=== PATIENT | female | born 1995 | race African-American/Black ===

== ENCOUNTER 2018-09-13 08:21 | Emergency (ER) | payer MEDICAID, OTHER ==
[~2018-09-13] VITALS: Ht 193 cm; Wt 95.0 kg
[2018-09-13] MEDS ORDERED: IBUPROFEN 600 MG TABLET PO ONE (09:00)
[2018-09-13] MEDS ORDERED: HYDROCODONE/ACETAMINOPHEN 5-325 MG TABLET PO ONE (09:00)
[2018-09-13 09:23] VITALS: BP 132/84
[2018-09-13] MEDS ORDERED: BACITRACIN 0.9 GM PACKET OINTMENT TP ONE (09:45)
== END 2018-09-13 10:05 | disposition home or self-care (01) ==
LOC: EMS 08:22
DX: T23.201A Burn of second degree of right hand, unspecified site, initial encounter (principal); F17.210 Nicotine dependence, cigarettes, uncomplicated; F12.90 Cannabis use, unspecified, uncomplicated; X02.0XXA Exposure to flames in controlled fire in building or structure, initial encounter; Y93.89 Activity, other specified; Y92.89 Other specified places as the place of occurrence of the external cause; Y99.8 Other external cause status
CPT/HCPCS: 16020; 99406